=== PATIENT | female | born 1985 | race Caucasian/White ===

== ENCOUNTER 2019-07-15 10:28 | Outpatient (CLI) | payer BC, SELFPAY ==
[2019-07-15 11:35] LABS: Alanine Aminotransferase 445 U/L (4-35); Albumin Level 4.7 g/dL (3.5-5.1); Alkaline Phosphatase 69 U/L (38-126); Amylase 61 U/L (30-110); Aspartate Amino Transferase 114 U/L (14-36); Bilirubin,Total 0.6 mg/dL (0.2-1.3); Lipase 54 U/L (23-300)
== END 2019-07-15 10:29 | disposition home or self-care (01) ==
LOC: ANHSURGERY 10:31
PROVIDERS: PCP Family Medicine; Visit Provider Surgery
DX: K80.10 Calculus of gallbladder with chronic cholecystitis without obstruction (principal)
CPT/HCPCS: 36415; 80076; 82150; 83690

== ENCOUNTER 2019-07-20 00:07 | Day surgery (SDC) | payer BC, SELFPAY ==
[2019-07-08 09:24] VITALS: BMI 33.2
[2019-07-20] VITALS (8 sets, daily range): BP systolic 104–136; BP diastolic 70–85; PULSE 48–74; RESP 12–20; TEMP 36.3–36.7; O2SAT 100
--- NOTE | 2019-07-20 07:31 | PM.HPGS ---
History of Present Illness History of Present Illness Consent: Risks, benefits, and alternatives of a laparoscopic cholecystectomy, possible IOC, possible open cholecystectomy have been discussed and questions answered. Patient agrees to proceed with procedure. Chief complaint: cholelithiasis Narrative: Caitlyn Vuong is a 34 year old female Ms that presented to the office about a montn ago at the request of Dr Cagle for an evaluation of abdominal pain. Patient went to [facility] ER on 05/30/19 for abdominal pain. Patient had a CT scan of the abdomen and pelvis with contrast while in the ER that showed cholelithiasis and gallbladder distention that may be secondary to fasting or cholecysitits. Patient reports that since being at the ER she has not had any pain attacks but she reports she has sticking to a low-fat diet. Patient reports that prior to going to the ER she had two eggs that were cooked in butter with butter toast. She reports that episode that sent her to the ER was the worse attack with she had had. She reports that pervious to this attack she was thinking it was more greasy fatty foods, especially red beef. She reports that in March she noticed her attacks more often and would occur a few times a week. Each episode would consist of RUQ pain that radiates into the back. Patient reports she has been constipated since being in the ER. She reports that she has been taking Colace and laxative she believe this is just from the diet change. Patient is otherwise healthy, patient reports that her only surgical history was a 3 years ago. Review of Systems Constitutional: Constitutional: Reports no additional constitutional complaints, Reports fatigue and Denies malaise Eyes: Eyes: Denies change in vision and Denies loss of vision ENT: Reports Normal hearing present, Denies change in voice, Denies dizziness, Denies hoarseness and Denies sore throat Cardiovascular: Cardiovascular: Denies chest pain, Denies leg edema and Denies dyspnea Respiratory: Respiratory: Denies cough, Denies dyspnea and Denies wheezing Gastrointestinal: Gastrointestinal: Reports as per HPI, Denies hematochezia, Denies change in bowel habits and Denies heartburn Comments: Patient has been experiencing periodic right upper quadrant abdominal pain after eating fatty or spicy foods. Genitourinary: Genitourinary: Denies urinary frequency and Denies urinary incontinence Neurologic: Reports Normal hearing present, Denies confusion, Denies dizziness, Denies loss of vision, Denies memory loss and Denies seizure-like activity Psychiatric: Psychiatric: Denies confusion, Denies depression and Denies memory loss Endocrine: Endocrine: Denies cold intolerance and Reports fatigue Hematologic/Lymphatic: Hematologic/Lymphatic: Denies easy bleeding and Denies easy bruising Allergic/Immunologic: Allergic/Immunologic: Denies wheezing PMFSH Past Medical History Medical History Dysfunction of both eustachian tubes Eczema Nasal bleeding Seasonal allergies Social History Social History Smoking status: Former smoker Smoking end date: 06/17/09 Alcohol intake: current Meds Home Medications and Allergies Home Medications Medication Instructions Recorded Confirmed Type ondansetron HCl 4 mg tablet 4 mg PO Q6H PRN #20 tablet 06/12/19 07/20/19 Rx hydrocodone 5 mg-acetaminophen 325 1 tablet PO Q6H PRN #6 tablet 06/18/19 07/20/19 Rx mg tablet levonorgestrel 20 mcg/24 hours (5 1 device I-UTERINE ONCE 07/03/19 07/20/19 History yrs) 52 mg intrauterine device guaifenesin [Mucinex] 600 mg PO Q12H PRN 07/08/19 07/20/19 History loratadine [Claritin] 10 mg PO DAILY PRN 07/08/19 07/20/19 History Allergies Allergy/AdvReac Type Severity Reaction Status Date / Time CANTALOUPE Allergy Mild MOUTH ITCHY Uncoded 07/20/19 09:10 Exam Const:
[2019-07-20] MEDS: LACTATED RINGERS 1,000 ML 30 ML IV CONT ×2 (09:05→11:20)
--- NOTE | 2019-07-20 09:05 | WPDANESEPPF ---
Anes - Initial Pre Proc Eval Procedure: Operation Date: 07/20/19 10:30 Proposed Procedures p Laparoscopic Cholecystectomy, Possible Intra Operative Cholangiograms, Possible Open - Best Alvarez MD Date/Time: 07/20/19 09:05 Surgeon: Best Alvarez MD Pre Op Diagnosis: cholelithiasis Patient Data Age: 34 Gender: F Height: 5 ft Weight: 77.11 kg Allergies Allergy/AdvReac Type Severity Reaction Status Date / Time CANTALOUPE Allergy Mild MOUTH ITCHY Uncoded 07/08/19 09:25 Home Medications Medication Instructions Recorded Confirmed Type ondansetron HCl 4 mg tablet 4 mg PO Q6H PRN #20 tablet 06/12/19 07/08/19 Rx hydrocodone 5 mg-acetaminophen 325 1 tablet PO Q6H PRN #6 tablet 06/18/19 07/08/19 Rx mg tablet levonorgestrel 20 mcg/24 hours (5 1 device I-UTERINE ONCE 07/03/19 07/08/19 History yrs) 52 mg intrauterine device guaifenesin [Mucinex] 600 mg PO Q12H PRN 07/08/19 07/08/19 History loratadine [Claritin] 10 mg PO DAILY PRN 07/08/19 07/08/19 History Patient hx anesthesia problems: none Family hx anesthesia problems: none [facility] Past Medical History Medical History Dysfunction of both eustachian tubes Eczema Nasal bleeding Seasonal allergies Social History Social History Smoking status: Former smoker Smoking end date: 06/17/09 Alcohol intake: current Anes - Eval Final PreProcedure Day of Procedure 07/20/19 09:05 Patient weight: normal Heart: regular rate and rhythm Lungs: clear to auscultation Airway: Mallampati scale class II Neurological: alert and oriented Last oral intake: >/= 8 hours ASA classification: II Emergent: no Anesthetic plan: proceed Anesthesia type and monitoring: general ETT and standard monitoring Informed Consent: The patient's anesthetic plan and its attendant risks and benefits were discussed with the patient/family/POA. Questions were solicited and answers provided to the satisfaction of the patient/family/POA.
[2019-07-20] MEDS: ceFAZolin 2 GM/D5W 50 ML 2 GM/50 ML BAG IVPB (09:50)
[2019-07-20] MEDS: BUPIVACAINE/EPINEPHRINE 0.5% 30 ML VIAL INFILTRATE (10:25)
--- NOTE | 2019-07-20 11:13 | PM.PROC ---
Procedure Note - Detailed Date of procedure: 07/20/19 Pre-op diagnosis: cholelithiasis Post-op diagnosis: other (Chronic cholecystitis with cholelithiasis) Procedure performed: Laparoscopic cholecystectomy Description of procedure: Procedure Details: Patient was seen preoperatively in the holding area and risks, benefits and alternatives confirmed. Patient was taken to the operating room and general anesthesia was induced. A time out was then preformed with the surgery team confirming patient and site of surgery. The abdomen was prepped and draped in the usual sterile fashion. Incision was made just below the umbilicus. Two stay sutures of O- Vicryl were used to elevate the mid-line fascia beneath the umbilicus and a small incision was made under direct vision. The peritoneum was entered. The 12 mm Raza cannula was introduced under direct vision. First under low flow and then under high flow the abdomen was insufflated with carbon dioxide never exceeding a pressure of 14. Three 5 mm trocars were then introduced under direct vision. The following trocars were introduced under direct vision: a 5 mm in the epigastrium and two 5 mm trocars along the right costal margin. The omentum was loosely adhered to the inferior side of the gallbladder starting about snf down its inferior wall all the way to the triangle of Calot. I carefully dissected either side of the triangle structures and developed a window of safety. Only 2 structures the cystic duct and cystic artery were connected to the gallbladder at this point. Once this was dissected the gall bladder was grasped and the cystic duct and artery were dissected free and clipped with an 5 mm endo-clip manager of business. The cystic duct was then transected. The cystic artery was also transected at this point. The gall bladder was removed using electrocautery and then removed using a large 10 mm grasper via the umbilical incision. I did have to enlarge the fascial incision about 1 cm in order to get the gallbladder out. There was a large palpable stone in the gallbladder noted by palpation upon removal. The trocars were removed visualizing hemostasis and the remaining gas evacuated. The large trocar site at the umbilicus was closed with two 0 vicryl figure of 8 sutures. The 2 stay sutures mentioned above on either side of the fascia were also tied together to help approximate this midline fascia. Further local anesthetic was placed into each incision for postop pain control. The skin incisions were closed with a subcuticular of 4-0 Monocryl. Surgical glue then was applied to all the incisions. Patient tolerated the procedure well was taken to the recovery room in good condition. Anesthesia: GETA Surgeon: Best Alvarez MD Steam Brush Operator: DOMI Sharma, OR 1st assist Estimated blood loss (mL): 5 Drains: No Packing: No Pathology: yes (The gallbladder) Complications: No immediate complications Condition: stable Disposition: PACU Findings: A non inflamed gallbladder with chronic adhesions to the omentum.
== END 2019-07-20 13:20 | disposition home or self-care (01) ==
PROVIDERS: PCP Family Medicine; Visit Provider Surgery
PROC: 0FT44ZZ Resection of Gallbladder, Percutaneous Endoscopic Approach (ICD-10-PCS; CPT 47562; principal; 2019-07-20 10:30)
DX: K80.10 Calculus of gallbladder with chronic cholecystitis without obstruction (principal); Z87.891 Personal history of nicotine dependence
CPT/HCPCS: 47562; 88304; A9270; J0131; J0690; J1100; J2250; J2405; J2704; J2710; J3010; J7120

== ENCOUNTER 2020-11-22 13:48 | Outpatient (CLI) | payer BC, SELFPAY | END 2020-11-22 13:49 | disposition home or self-care (01) | LOC: ANHAUDIO 13:50 | PROVIDERS: PCP Nurse Practitioner Family; Visit Provider Otolaryngology | DX: H69.93 Unspecified Eustachian tube disorder, bilateral (principal) | CPT/HCPCS: 92552; 92556; 92567 ==